=== PATIENT | female | born 1980 | race African-American/Black ===

== ENCOUNTER 2018-01-13 09:46 | Outpatient (CLI) | payer MEDICAID ==
--- NOTE | 2018-01-13 12:04 | ULT ---
PELVIC ULTRASOUND WITH DOPPLER: (Transabdominal, transvaginal, Kat scale, color flow and spectral Doppler) Date: 01/13/18 HISTORY: Right-sided pelvic pain. FINDINGS: The uterus measures 13.3 x 4.9 x 5.3 cm, without focal mass or endometrial fluid. Endometrium measure s 7.0 mm in thickness. The right ovary measures 4.0 x 2.5 x 2.8 cm. The left ovary measures 3.2 x 1.9 x 2.3 cm. Flow is demo nstrated to both ovaries. There are two complex cysts in the right ovary measuring 1.6 and 1.8 cm, re spectively. A small amount of free fluid is seen in the cul-de-sac. IMPRESSION: Small complex cysts in the right ovary and free fluid in the cul-de-sac. POS: HANNAH
== END 2018-01-13 09:47 | disposition home or self-care (01) ==
LOC: SCSULT 09:46
PROVIDERS: ATTEND Family Medicine
DX: R10.2 Pelvic and perineal pain (principal); N83.201 Unspecified ovarian cyst, right side
CPT/HCPCS: 76856